=== PATIENT | female | born 2000 | race Hispanic/Latino ===

== ENCOUNTER 2019-08-16 15:58 | Emergency (ER) | payer MEDICAID, OTHER ==
[2019-08-16 16:24] LABS: APPEARANCE,URINE CLEAR (CLEAR); BILIRUBIN,URINE NEGATIVE (NEGATIVE); COLOR,URINE YELLOW (YELLOW); GLUCOSE, URINE (UA) NEGATIVE (NEGATIVE); KETONES,URINE 5 mg/dL (NEGATIVE); LEUKOCYTE ESTERASE ,URINE NEGATIVE (NEGATIVE); NITRATE,URINE NEGATIVE (NEGATIVE); OCCULT BLOOD,URINE TRACE-LYSED (NEGATIVE); PH,URINE 8.5 (5.0-8.0); PROTEIN,URINE NEGATIVE (NEGATIVE)
[2019-08-16 16:28] LABS: HCG,QUAL RESULT POSITIVE (NEGATIVE)
[2019-08-16 16:30] LABS: BACTERIA,URINE Rare /HPF (None Seen); RBC,URINE 0-1 /HPF (0-1); SQUAMOUS EPITHELIAL CELL,UR Rare /HPF (0-2); WBC,URINE 0-1 /HPF (0-1)
[2019-08-16] MEDS ORDERED: ONDANSETRON HCL 4 MG/2 ML VIAL ONE (16:45)
[2019-08-16] MEDS ORDERED: SODIUM CHLORIDE 0.9% 1000ML 1,000 ML IV ONE (16:46)
[2019-08-16 16:51] LABS: BASOPHILS % (AUTO) 0.7 % (0.0-5.0); EOSINOPHILS % (AUTO) 3.2 % (0.0-8.0); HEMATOCRIT 36.1 % (36-48); LYMPHOCYTES % (AUTO) 34.5 % (21.0-51.0); MEAN CORPUSCULAR HEMOGLOBIN 25.1 pg (27.0-33.0); MEAN CORPUSCULAR HGB CONC 32.4 g/dL (32.0-36.0); MEAN CORPUSCULAR VOLUME 77.5 fL (80-100); MONOCYTES % (AUTO) 7.6 % (3.0-13.0); NEUTROPHILS % (AUTO) 53.8 % (40.0-77.0); PLATELET COUNT (AUTO) 229 K/uL (130-400); RED BLOOD CELL COUNT(AUTO) 4.66 MIL/uL (4.00-5.50); RED CELL DISTRIBUTION WIDTH 13.2 % (11.0-15.5); WHITE BLOOD COUNT (AUTO) 5.9 K/uL (4.8-10.8)
[2019-08-16 17:04] LABS: CREATININE 0.4 mg/dL (0.5-1.5); POTASSIUM 4.9 mmol/L (3.5-5.1)
[2019-08-16 17:08] LABS: ALBUMIN 3.9 g/dL (3.5-5.0); BILIRUBIN,TOTAL 0.5 mg/dL (0.2-1.0); TOTAL PROTEIN, SERUM 8.3 g/dL (6.0-8.3)
== END 2019-08-16 18:30 | disposition home or self-care (01) ==
LOC: EDH 15:58
DX: O26.891 Other specified pregnancy related conditions, first trimester (principal); R10.31 Right lower quadrant pain; R11.0 Nausea; Z3A.01 Less than 8 weeks gestation of pregnancy
CPT/HCPCS: 36415; 76705; 76801; 80053; 81001; 81025; 84702; 85025; 96374; 99285; J2405; J7030

== ENCOUNTER 2023-01-04 02:55 | Inpatient (IN) | payer MEDICAID ==
[~2023-01-04] VITALS: Ht 152.4 cm; Wt 61.7 kg
[2023-01-04 03:50] LABS: BASOPHILS % (AUTO) 0.4 % (0.0-5.0); EOSINOPHILS % (AUTO) 0.7 % (0.0-8.0); HEMATOCRIT 42.2 % (36-48); LYMPHOCYTES % (AUTO) 21.5 % (21.0-51.0); MEAN CORPUSCULAR HEMOGLOBIN 26.8 pg (27.0-33.0); MEAN CORPUSCULAR HGB CONC 32.9 g/dL (32.0-36.0); MEAN CORPUSCULAR VOLUME 81.5 fL (79-99); MONOCYTES % (AUTO) 2.8 % (3.0-13.0); NEUTROPHILS % (AUTO) 74.2 % (40.0-77.0); PLATELET COUNT (AUTO) 276 K/uL (130-400); RED BLOOD CELL COUNT(AUTO) 5.18 MIL/uL (4.00-5.50); RED CELL DISTRIBUTION WIDTH 12.6 % (11.0-15.5); WHITE BLOOD COUNT (AUTO) 9.1 K/uL (4.8-10.8)
[2023-01-04 03:52] LABS: APPEARANCE,URINE CLOUDY (CLEAR); BILIRUBIN,URINE NEGATIVE (NEGATIVE); COLOR,URINE YELLOW (YELLOW); GLUCOSE, URINE (UA) NEGATIVE (NEGATIVE); KETONES,URINE 150 mg/dL (NEGATIVE); LEUKOCYTE ESTERASE ,URINE 500 Leu/uL (NEGATIVE); NITRATE,URINE NEGATIVE (NEGATIVE); OCCULT BLOOD,URINE SMALL (NEGATIVE); PROTEIN,URINE 30 mg/dL (NEGATIVE); UROBILINOGEN,URINE 0.2 mg/dL (0.2-1.0)
[2023-01-04 03:54] LABS: HCG,QUALITATIVE URINE NEGATIVE (NEGATIVE)
[2023-01-04 03:57] LABS: BACTERIA,URINE RARE /HPF (None Seen); MUCUS,URINE MANY LPF (None Seen); SQUAMOUS EPITHELIAL CELL,UR MANY /HPF (0-2)
[2023-01-04 03:59] LABS: CREATININE 0.6 mg/dL (0.5-1.5); POTASSIUM 4.1 mmol/L (3.5-5.1)
[2023-01-04] MEDS ORDERED: 0.9%NACL 1000ML 1,000 ML IV ONE (04:00)
[2023-01-04] MEDS ORDERED: ONDANSETRON 4MG INJ IVP ONE (04:00)
[2023-01-04] MEDS ORDERED: MORPHINE 4 MG SYG IVP ONE (04:00)
[2023-01-04 04:04] LABS: ALBUMIN 4.3 g/dL (3.5-5.0); TOTAL PROTEIN, SERUM 8.5 g/dL (6.0-8.3)
[2023-01-04] MEDS ORDERED: IOHEXOL 350 MG/ML 100ML INFUS..BTL IV ONE (05:57)
[2023-01-04] MEDS ORDERED: ZOSYN 3.375GM +NS 50ML IVPB ONE (06:30)
[2023-01-04] MEDS: ZOSYN 3.375GM +NS 50ML IVPB SCH ×3 (06:54→23:08)
[2023-01-04] MEDS ORDERED: HYDROMORPHONE 0.5 MG SYG (0.5MG/0.5ML) IVP ONE ×2 (07:00)
[2023-01-04] MEDS: LACTATED RINGERS 1000ML 1,000 ML IV SCH ×2 (07:39→20:20)
[2023-01-04] MEDS: FAMOTIDINE 20MG VIAL IV SCH (08:15)
[2023-01-04] MEDS ORDERED: 0.9%NACL 50ML IV SCH (09:00)
[2023-01-04 10:51] VITALS: BP 146/82; PULSE 83; RESP 18
[2023-01-04 10:53] VITALS: O2SAT 100
[2023-01-04] MEDS: ONDANSETRON 4MG INJ IVP PRN (15:18)
[2023-01-04] MEDS: MORPHINE 2 MG SYG IVP PRN (15:18)
[2023-01-04] MEDS ORDERED: KETOROLAC 30MG VIAL (30MG/ML) ONE (20:44)
[2023-01-04] MEDS ORDERED: KETOROLAC 30MG VIAL (30MG/ML) IVP ONE (21:30)
[2023-01-04 23:31] VITALS: BP 128/71; PULSE 66; RESP 18
[2023-01-05] VITALS (9 sets, daily range): BP systolic 105–124; BP diastolic 54–90; PULSE 74–90; RESP 16–18; O2SAT 98–99
[2023-01-05] MEDS: LACTATED RINGERS 1000ML 1,000 ML IV SCH (02:58)
[2023-01-05 06:25] LABS: BASOPHILS % (AUTO) 0.5 % (0.0-5.0); HEMATOCRIT 35.7 % (36-48); LYMPHOCYTES % (AUTO) 29.9 % (21.0-51.0); MEAN CORPUSCULAR HEMOGLOBIN 26.9 pg (27.0-33.0); MEAN CORPUSCULAR HGB CONC 33.6 g/dL (32.0-36.0); MONOCYTES % (AUTO) 6.5 % (3.0-13.0); NEUTROPHILS % (AUTO) 60.8 % (40.0-77.0); PLATELET COUNT (AUTO) 237 K/uL (130-400); RED BLOOD CELL COUNT(AUTO) 4.46 MIL/uL (4.00-5.50); RED CELL DISTRIBUTION WIDTH 12.5 % (11.0-15.5); WHITE BLOOD COUNT (AUTO) 9.7 K/uL (4.8-10.8)
[2023-01-05 06:42] LABS: ALBUMIN 3.3 g/dL (3.5-5.0); CREATININE 0.5 mg/dL (0.5-1.5); MAGNESIUM 1.8 mg/dL (1.80-2.40); POTASSIUM 3.5 mmol/L (3.5-5.1); TOTAL PROTEIN, SERUM 6.7 g/dL (6.0-8.3)
[2023-01-05] MEDS: ZOSYN 3.375GM +NS 50ML IVPB SCH ×3 (06:50→23:00)
[2023-01-05] MEDS ORDERED: MAGNESIUM 2GM PREMIX 50ML 50 ML IV PRN (07:30)
[2023-01-05] MEDS ORDERED: POTASSIUM CHLORIDE 20MEQ/100ML 100 ML IV PRN (07:30)
[2023-01-05] MEDS: FAMOTIDINE 20MG VIAL IV SCH (08:12)
[2023-01-05] MEDS: MORPHINE 2 MG SYG IVP PRN ×2 (14:22→22:18)
[2023-01-06] VITALS (28 sets, daily range): BP systolic 116–145; BP diastolic 64–91; PULSE 69–98; RESP 15–20; O2SAT 97–99
[2023-01-06] MEDS: LACTATED RINGERS 1000ML 1,000 ML IV SCH ×2 (02:35→12:20)
[2023-01-06 04:45] LABS: BASOPHILS % (AUTO) 0.5 % (0.0-5.0); EOSINOPHILS % (AUTO) 3.3 % (0.0-8.0); HEMATOCRIT 34.8 % (36-48); LYMPHOCYTES % (AUTO) 34.3 % (21.0-51.0); MEAN CORPUSCULAR HEMOGLOBIN 27.1 pg (27.0-33.0); MEAN CORPUSCULAR VOLUME 81.9 fL (79-99); MONOCYTES % (AUTO) 6.2 % (3.0-13.0); NEUTROPHILS % (AUTO) 55.5 % (40.0-77.0); PLATELET COUNT (AUTO) 229 K/uL (130-400); RED BLOOD CELL COUNT(AUTO) 4.25 MIL/uL (4.00-5.50); RED CELL DISTRIBUTION WIDTH 12.2 % (11.0-15.5); WHITE BLOOD COUNT (AUTO) 8.1 K/uL (4.8-10.8)
[2023-01-06 05:01] LABS: ALBUMIN 3.1 g/dL (3.5-5.0); CREATININE 0.6 mg/dL (0.5-1.5); MAGNESIUM 1.9 mg/dL (1.80-2.40); POTASSIUM 3.7 mmol/L (3.5-5.1); TOTAL PROTEIN, SERUM 6.9 g/dL (6.0-8.3)
[2023-01-06] MEDS: ZOSYN 3.375GM +NS 50ML IVPB SCH ×3 (06:11→23:12)
[2023-01-06] MEDS: FAMOTIDINE 20MG VIAL IV SCH (08:52)
[2023-01-06] MEDS ORDERED: SIMETHICONE 80 MG TAB.CHEW PO PRN (09:00)
[2023-01-06] MEDS ORDERED: ONDANSETRON 4MG INJ ONE (11:53)
[2023-01-06] MEDS ORDERED: PROPOFOL 10 MG/ML 20ML VIAL IV ONE (11:53)
[2023-01-06] MEDS ORDERED: SUCCINYLCHOLINE 200MG/10ML SYR ONE (11:53)
[2023-01-06] MEDS ORDERED: DEXAMETHASONE SOD PHOSPHATE 10MG/ML 1ML VIAL ONE (11:53)
[2023-01-06] MEDS ORDERED: LIDOCAINE PF 100MG/5ML (2%) SYRINGE 5ML ONE (11:53)
[2023-01-06] MEDS ORDERED: GLYCOPYRROLATE 1 MG/5 ML SYRINGE ONE (11:53)
[2023-01-06] MEDS ORDERED: BUPIVACAINE/PF 0.5% 30ML VIAL ONE (11:53)
[2023-01-06] MEDS ORDERED: MIDAZOLAM HCL 1 MG/ML 2ML VIAL ONE (11:54)
[2023-01-06] MEDS ORDERED: ROCURONIUM 10MG/1ML SYR 10 MG/ML ML ONE (11:54)
[2023-01-06] MEDS ORDERED: NEOSTIGMINE 5MG/5ML SYR IV ONE (11:54)
[2023-01-06] MEDS ORDERED: FENTANYL CITRATE PF 50 MCG/1 ML 2ML VIAL ONE (11:54)
[2023-01-06] MEDS ORDERED: INDOCYANINE GREEN 25 MG VIAL IJ ONE (12:26)
[2023-01-06] MEDS ORDERED: BUPIVACAINE/PF 0.5% 30ML VIAL INJ ONE (12:33)
[2023-01-06] MEDS ORDERED: MORPHINE PF 100MG/10ML AMP IV ONE (13:02)
[2023-01-06] MEDS ORDERED: KETOROLAC 30MG VIAL (30MG/ML) ONE (13:05)
[2023-01-06] MEDS ORDERED: LIDOCAINE HCL-MPF 2% 10ML AMP IJ ONE ×2 (13:14→13:27)
[2023-01-06] MEDS ORDERED: MEPERIDINE-PF 25 MG/ML SYG ONE (13:53)
[2023-01-06] MEDS ORDERED: MORPHINE 4 MG SYG IVP PRN (15:00)
[2023-01-06] MEDS ORDERED: IBUPROFEN 400 MG TABLET PO PRN (15:00)
[2023-01-06] MEDS: ONDANSETRON 4MG INJ IVP PRN (18:05)
[2023-01-06] MEDS: SIMETHICONE 80 MG TAB.CHEW PO SCH (20:14)
[2023-01-06] MEDS: ACETAMINOPHEN WITH CODEINE 1 TAB TAB PO PRN (20:18)
[2023-01-07 03:10] VITALS: BP 111/76; PULSE 90; RESP 18
[2023-01-07] MEDS: ACETAMINOPHEN WITH CODEINE 1 TAB TAB PO PRN (05:21)
[2023-01-07] MEDS: ZOSYN 3.375GM +NS 50ML IVPB SCH (06:13)
[2023-01-07 06:19] LABS: BASOPHILS % (AUTO) 0.3 % (0.0-5.0); EOSINOPHILS % (AUTO) 1.2 % (0.0-8.0); HEMATOCRIT 33.9 % (36-48); LYMPHOCYTES % (AUTO) 16.6 % (21.0-51.0); MEAN CORPUSCULAR HEMOGLOBIN 26.8 pg (27.0-33.0); MEAN CORPUSCULAR HGB CONC 33.3 g/dL (32.0-36.0); MEAN CORPUSCULAR VOLUME 80.3 fL (79-99); NEUTROPHILS % (AUTO) 78.6 % (40.0-77.0); PLATELET COUNT (AUTO) 231 K/uL (130-400); RED BLOOD CELL COUNT(AUTO) 4.22 MIL/uL (4.00-5.50); RED CELL DISTRIBUTION WIDTH 12.2 % (11.0-15.5); WHITE BLOOD COUNT (AUTO) 10.6 K/uL (4.8-10.8)
[2023-01-07 06:39] LABS: CREATININE 0.5 mg/dL (0.5-1.5); MAGNESIUM 1.7 mg/dL (1.80-2.40); POTASSIUM 3.5 mmol/L (3.5-5.1); TOTAL PROTEIN, SERUM 6.8 g/dL (6.0-8.3)
[2023-01-07] MEDS: SIMETHICONE 80 MG TAB.CHEW PO SCH (08:20)
[2023-01-07] MEDS: FAMOTIDINE 20MG VIAL IV SCH (08:20)
[2023-01-07] MEDS ORDERED: POTASSIUM CHLORIDE 10% ELIXIR 20 MEQ/15 ML UDCUP PO PRN (08:30)
[2023-01-07] MEDS ORDERED: KCL 20 MEQ ERTAB PO PRN (08:30)
[2023-01-07] MEDS ORDERED: KCL 20 MEQ ERTAB PO ONE (08:33)
[2023-01-07 08:43] VITALS: BP 111/73; PULSE 81; RESP 18
[2023-01-07 08:44] VITALS: O2SAT 97
[2023-01-07] MEDS ORDERED: AMOX500T2 PO (10:09)
[2023-01-07] MEDS: LACTATED RINGERS 1000ML 1,000 ML IV SCH (10:15)
[2023-01-07] MEDS ORDERED: LACTULOSE 20 GM/30 ML UDCUP ONE (11:14)
[2023-01-07] MEDS ORDERED: LACTULOSE 20 GM/30 ML UDCUP PO SCH (11:30)
[2023-01-07 12:17] VITALS: BP 137/93; PULSE 91; RESP 18
== END 2023-01-07 13:50 | disposition home or self-care (01) | DRG 263 ==
LOC: EDH 02:55 → EDHIP 02:56 → WSH 01-05
PROVIDERS: ADMIT Hospitalist; ATTEND Hospitalist
PROC: 8E0W4CZ Robotic Assisted Procedure of Trunk Region, Percutaneous Endoscopic Approach (ICD-10-PCS; 2023-01-06)
PROC: 0FT44ZZ Resection of Gallbladder, Percutaneous Endoscopic Approach (ICD-10-PCS; principal; 2023-01-06 12:10)
DX: K80.62 Calculus of gallbladder and bile duct with acute cholecystitis without obstruction (principal); K66.0 Peritoneal adhesions (postprocedural) (postinfection); N39.0 Urinary tract infection, site not specified; Z20.822 Contact with and (suspected) exposure to COVID-19
CPT/HCPCS: 36415; 74177; 76705; 78226; 80053; 81001; 81025; 83690; 83735; 85025; 87088; 87635; A9537; G0378; J0330; J1100; J1170; J1885; J2001; J2175; J2250; J2270; J2274; J2405; J2543; J2704; J2710; J3010; J3475; J3490; J7030; J7120; Q9967; A4216; A4221; A4222; A4223; A4600